=== PATIENT | female | born 1990 | race Caucasian/White ===

== ENCOUNTER 2017-04-20 10:14 | Emergency (ER) | payer BC ==
[~2017-04-20] VITALS: Ht 165.1 cm; Wt 69.8 kg
[2017-04-20] MEDS ORDERED: SODIUM CHLORIDE 0.9% 1,000ML IVBOLUS ONE (11:00)
[2017-04-20] MEDS ORDERED: SODIUM CHLORIDE FLUSH 10ML SYR IVF ONE (11:00)
[2017-04-20] MEDS ORDERED: MORPHINE SULFATE 4 MG/ML, 1ML IVPush PRN (11:00)
[2017-04-20] MEDS ORDERED: FAMOTIDINE 20 MG/2 ML IVP ONE (11:00)
[2017-04-20] MEDS ORDERED: ONDANSETRON 2MG/ML, 2ML IVPush ONE (11:00)
[2017-04-20] MEDS ORDERED: ONDANSETRON 2MG/ML, 2ML ONE (11:04)
[2017-04-20] MEDS ORDERED: MORPHINE SULFATE 4 MG/ML, 1ML ONE (11:04)
[2017-04-20] MEDS ORDERED: FAMOTIDINE 20 MG/2 ML ONE (11:05)
[2017-04-20 11:23] LABS: HEMATOCRIT 44.4 % (34.6-47.8); HEMOGLOBIN 15.2 g/dL (11.7-16.4); WHITE BLOOD COUNT 10.3 x10^3/uL (3.4-10)
[2017-04-20 11:35] LABS: ASPARTATE AMINO TRANSFERASE 14 U/L (15-37); BLOOD UREA NITROGEN 15 mg/dL (7-18)
[2017-04-20] MEDS ORDERED: MAALOX/HYOSCYAMINE/LIDOCAINE 45 ML BTL PO ONE (12:30)
[2017-04-20] MEDS ORDERED: MAALOX/HYOSCYAMINE/LIDOCAINE 45 ML BTL ONE (12:32)
[2017-04-20 12:50] VITALS: BP 105/65
== END 2017-04-20 13:05 | disposition home or self-care (01) ==
LOC: ED 12:59
DX: K29.00 Acute gastritis without bleeding (principal); Z72.9 Problem related to lifestyle, unspecified
CPT/HCPCS: 36415; 76700; 80053; 81003; 82010; 82800; 83690; 84703; 85025; 93005; 96361; 96374; 96375; 99285; J2405; J7030; S0028